=== PATIENT | male | born 1970 | race Caucasian/White ===

== ENCOUNTER 2016-12-15 21:57 | Emergency (ER) | payer BC, OTHER ==
--- NOTE | ~2016-12-15 | CR72 ---
[facility] A Service of [facility] & [facility] RADIOLOGY TEXT RESULTS PATIENT: LEONILA STREETER LOCATION: [facility] : 74 UNIT #: [id number] AGE: [address]: Lizzie Isidro MD SEX: M ORDER DR: [id number] [facility] [address] [place], [place] [address] [id number] MR#: [id number] Acc #: [id number] NAME: LEONILA STREETER : 1970 SEX: M STUDY DATE/TIME: 12/15/2016 20:22 UNIT: [facility] ROOM: STUDY DESCRIPTION: CR Chest Single View Portable Attending Physician: Lizzie Isidro M.D. Referring Physician: Rocco Richards M.D. Ordering Physician: Lizzie Isidro M.D. Primary Care Physician: Rocco Richards M.D. MEDICAL IMAGING REPORT This report is preliminary unless electronic signature is present EXAM Portable chest, 12/15/2016. HISTORY Chest pain and heart palpitations for 2 months, worsening today. Smoking history. FINDINGS There is mild cardiac enlargement, status post median sternotomy. The lungs are clear. There are no pleural effusions. IMPRESSION Mild cardiomegaly, status post median sternotomy. No active pulmonary disease. Dictated by... Jordi Talbot M.D. THIS IS AN ELECTRONICALLY VERIFIED REPORT Jordi Talbot M.D. at 12/17/2016 2:19 PM RANJEET/chelsy TD: 12/16/2016 15:32 JOB #: [id number] MEDICAL IMAGING REPORT COPY
--- NOTE | ~2016-12-15 | EKG ---
PATIENT: LEONILA STREETER UNIT #: [id number] Ventricular Rate: 86 BPM Atrial Rate: 86 BPM P-R Interval: 166 ms QRS Duration: 92 ms Q-T Interval: 374 ms QTC Calculation(Bezet): 447 ms P [place]: 56 degrees Calculated R [place]: -24 degrees Calculated T [place]: 64 degrees Diagnosis Line: Normal sinus rhythm Diagnosis Line: Possible Left atrial enlargement Diagnosis Line: Inferior infarct (cited on or before 28-AUG-2012) Diagnosis Line: Anterolateral infarct (cited on or before Diagnosis Line: 28-AUG-2012) Diagnosis Line: Abnormal ECG Diagnosis Line: When compared with ECG of 28-AUG-2012 08:28, Diagnosis Line: Questionable change in initial forces of Lateral Diagnosis Line: leads Diagnosis Line: T wave inversion no longer evident in Lateral Diagnosis Line: leads Diagnosis Line: Confirmed by PRAVEENA MURRAY MD ([id number]) on Diagnosis Line: 12/18/2016 12:01:59 AM INTERPRETING MD: TREVOR PATEL
[2016-12-15 20:38] LABS: BASOPHIL# 0.1 X10e3 (0-0.3); BASOPHIL% 0.9 % (0-2.5); EOSINOPHIL# 0.3 X10e3 (0-0.7); EOSINOPHIL% 3.2 % (0.0-7.0); HEMATOCRIT 42.8 % (38.0-50.0); HEMOGLOBIN 14.4 gm/dL (13.0-16.0); LYMPHOCYTE# 1.7 X10e3 (1.0-3.5); LYMPHOCYTE% 17.7 % (17.0-45.0); MEAN CELL VOLUME 81.8 FL (83-96); MEAN CORPUSCULAR HEMOGLOBIN 27.6 PG (28-34); MEAN CORPUSCULAR HGB CONC 33.7 g/dL (30-36); MEAN PLATELET VOLUME 8.4 FL (6.5-11.5); MONOCYTE# 0.7 X10e3 (0-1.0); MONOCYTE% 7.4 % (3.0-12.0); NEUTROPHIL# 6.8 X10e3 (1.5-7.1); NEUTROPHIL% 70.8 % (40-75); PLATELET COUNT 251 X10e3 (140-420); RED BLOOD COUNT 5.23 X10e (3.90-5.60); RED CELL DISTRIBUTION WIDTH 14.9 % (11.0-15.5); WHITE BLOOD COUNT 9.6 X10e3 (4.0-10.5)
[2016-12-15 20:38] LABS: POC - CKMB <1.0 ng/mL (0.0-7.9); POC - TROPONIN <0.05 ng/mL (<=0.05)
[2016-12-15 20:39] LABS: DIFF IND NO
[2016-12-15 21:00] LABS: ALBUMIN SERUM 4.3 g/dL (3.5-5.0); ALKALINE PHOSPHATASE 80 U/L (32-92); ALT (SGPT) 17 U/L (10-40); AST (SGOT) 17 U/L (10-42); BILIRUBIN, DIRECT 0.1 mg/dL (0.0-0.2); BILIRUBIN,INDIRECT 0.7 mg/dL (0.0-0.9); BILIRUBIN,TOTAL 0.8 mg/dL (0.2-2.0); BLOOD UREA NITROGEN 11 mg/dL (9-23); BUN/CREATININE RATIO 13.75; CALCIUM SERUM 9.2 mg/dL (8.4-10.2); CARBON DIOXIDE 28 mmol/L (22-31); CHLORIDE 98 mmol/L (100-111); CREATININE SERUM 0.8 mg/dL (0.6-1.4); GLOM FILT RATE Estimated ABOVE60 mL/min (>60); GLUCOSE FASTING 115 mg/dL (70-110); POTASSIUM 4.1 mmol/L (3.5-5.1); SODIUM 137 mmol/L (135-145)
[~2016-12-15 21:57] MED LIST: ALUPENT14 GM INH; APRESOLINE PO; ASPIRIN PO; CLONIDINE PO; COREG PO; FENOFIBRATE160 MG PO; GLIPIZIDE10 MG PO; HCTZ PO; KCL PO; LASIX PO; LISINOPRIL PO; METFORMIN PO; METOPROLOL TAR100 MG PO; MEVACOR PO; NICOTINE T1 PATCH .2 TOP; SYNTHROID PO; ZOCOR PO
[2016-12-15 22:15] LABS: POC - CKMB <1.0 ng/mL (0.0-7.9); POC - TROPONIN <0.05 ng/mL (<=0.05)
== END 2016-12-15 22:33 | disposition home or self-care (01) ==
LOC: CED 21:57
PROVIDERS: Student in an Organized Health Care Education/Training Program
DX: R00.2 Palpitations (principal); I10 Essential (primary) hypertension; I50.9 Heart failure, unspecified; E11.9 Type 2 diabetes mellitus without complications; E78.5 Hyperlipidemia, unspecified; F17.210 Nicotine dependence, cigarettes, uncomplicated; Z79.82 Long term (current) use of aspirin; Z79.899 Other long term (current) drug therapy
CPT/HCPCS: 36415; 71010; 80048; 80076; 82553; 82947; 83880; 84443; 84484; 85025; 85379; 93005; 99283; G0480